=== PATIENT | male | born 1960 | race Caucasian/White ===

== ENCOUNTER 2023-09-18 04:15 | Day surgery (SDC) | payer OTHER ==
[2023-09-18] MEDS ORDERED: ONDANSETRON 4 MG/2 ML VIAL ONE (15:14)
[2023-09-18] MEDS ORDERED: LIDOCAINE HCL/PF 2% SDV 5ML VIAL ONE ×2 (15:14→17:03)
[2023-09-18] MEDS ORDERED: DEXAMETHASONE SOD PHOSPHATE 4 MG/1 ML VIAL ONE (15:14)
[2023-09-18] MEDS ORDERED: MIDAZOLAM HCL 2 MG/2 ML SINGLE DOSE VIAL ONE (15:15)
[2023-09-18] MEDS ORDERED: PROPOFOL 20 ML ONE ×2 (15:16→16:08)
[2023-09-18] MEDS ORDERED: GENTAMICIN SO4 80 MG/2 ML VIAL ONE (15:20)
[2023-09-18] MEDS ORDERED: ceFAZolin SODIUM 1 GM VIAL ONE (16:26)
[2023-09-18] MEDS: ceFAZolin SODIUM 1 GM VIAL IVPB ONE ×2 (16:27)
[2023-09-18] MEDS ORDERED: ONDANSETRON 4 MG/2 ML VIAL IVPUSH PRN (17:20)
[2023-09-18] MEDS: LACTATED RINGERS SOLUTION 1,000 ML IV SCH (17:30)
[2023-09-18 19:33] VITALS: RESP 18
[2023-09-18 19:42] VITALS: BP 141/71; PULSE 62; TEMP 97.8
== END 2023-09-18 18:50 | disposition home or self-care (01) ==
LOC: JASU-SURG 04:15
PROVIDERS: ATTEND Urology
PROC: 0TC78ZZ Extirpation of Matter from Left Ureter, Via Natural or Artificial Opening Endoscopic (ICD-10-PCS; principal; 2023-09-18 14:45)
PROC: 0T778DZ Dilation of Left Ureter with Intraluminal Device, Via Natural or Artificial Opening Endoscopic (ICD-10-PCS; 2023-09-18 14:45)
PROC: BT1FYZZ Fluoroscopy of Left Kidney, Ureter and Bladder using Other Contrast (ICD-10-PCS; 2023-09-18 14:45)
DX: N20.1 Calculus of ureter (principal)
CPT/HCPCS: 76000-TC-FY; 82962; 94760; C1758; C1769